=== PATIENT | male | born 1995 | race Two or more races ===

== ENCOUNTER 2019-07-03 19:56 | Emergency (ER) | payer MEDICAID ==
[~2019-07-03] VITALS: Ht 167.6 cm; Wt 76.7 kg
--- NOTE | 2019-07-03 20:07 | NUR ---
[facility] AT BEDSIDE
--- NOTE | 2019-07-03 20:08 | NUR ---
Dr. Fernando at bedside for MSE
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
[2019-07-03] MEDS ORDERED: HYDROCODONE/APAP 5-325MG TABLET ONE (20:29)
[2019-07-03] MEDS ORDERED: HYDROCODONE/APAP 5-325MG TABLET PO ONE (20:30)
--- NOTE | 2019-07-03 21:50 | NUR ---
Patient discharged to home in stable conditon. Written and verbal after care instructions given. Patient verbalizes understanding of instructions. Patient ambulating with steady gait
[2019-07-03 23:06] VITALS: BP 132/79
== END 2019-07-03 21:50 | disposition home or self-care (01) ==
LOC: ER 19:58
DX: S09.90XA Unspecified injury of head, initial encounter (principal); M25.562 Pain in left knee; V49.9XXA Car occupant (driver) (passenger) injured in unspecified traffic accident, initial encounter; Y93.89 Activity, other specified; Y92.410 Unspecified street and highway as the place of occurrence of the external cause; Y99.8 Other external cause status
CPT/HCPCS: 70450; 73590; A4663